=== PATIENT | female | born 1955 | race Caucasian/White ===

== ENCOUNTER 2023-10-25 08:56 | Emergency (ER) | payer MEDICARE, SELFPAY ==
[2023-10-25 09:03] VITALS: BP 121/65; PULSE 67; RESP 16; TEMP 36.1; O2SAT 98; BMI 33.3
--- NOTE | 2023-10-25 09:19 | ED_ITS ---
HPI - General Adult General Chief complaint: Skin/Abscess/Foreign Body Stated complaint: rash under armpits Time Seen by Provider: 10/25/23 09:14 History of Present Illness HPI narrative: Patient is a 68-year-old woman who has had a rash in her axilla bilaterally for last week. She was seen in clinic and was treated with oral prednisone. Symptoms seem to worsen. The lesions extend from the axilla down the anterior medial aspect of both arms. That they extremely itchy and slightly raised and forming small circles. No other symptoms such as fevers chills night sweats cough shortness of breath no stiff neck no involvement of mucous membranes. Other than the itching she feels fine. She is diabetic. No weeping or drainage noted. Related Data Home Medications Medication Instructions Recorded Confirmed atorvastatin 40 mg tablet 40 mg PO DAILY 10/25/23 10/25/23 glimepiride 4 mg tablet 4 mg PO DAILY 10/25/23 10/25/23 levothyroxine 100 mcg capsule 100 mcg PO DAILY 10/25/23 10/25/23 lisinopril 10 mg tablet 10 mg PO DAILY 10/25/23 10/25/23 metformin 500 mg tablet 500 mg PO DAILY 10/25/23 10/25/23 pioglitazone 45 mg tablet 45 mg PO DAILY 10/25/23 10/25/23 Previous Rx's Medication Instructions Recorded cephalexin 500 mg capsule 500 mg PO TID 7 days #21 caps 10/25/23 nystatin 100,000 unit/gram topical 1 applic topical TID #60 grams 10/25/23 powder Allergies Allergy/AdvReac Type Severity Reaction Status Date / Time No Known Drug Allergies Allergy Verified 10/25/23 09:08 Review of Systems Status of ROS: Reports: 10 or more systems reviewed and unremarkable except as noted in History and below [facility] Medical History (Updated 10/25/23 @ 09:25 by Chucky Espinal MD) Diabetes mellitus ?E11.9 - Type 2 diabetes mellitus without complications (ICD-10) Social History Smoking Status: Never smoker How often do you have a drink containing alcohol: monthly or less AUDIT-C Alcohol total score: 1 Non-prescribed substance use: denies use Exam Narrative: Exam Narrative: EXAM GENERAL: Patient appears comfortable and well. EYES: No scleral icterus. THYROID: no thyroid nodules or thyromegaly. LYMPH: No supraclavicular or cervical lymphadenopathy. SKIN: Intermittent slightly raised erythematous rash noted in the axilla bilaterally extension to the anterior medial aspects of the arms. There is peers to be surrounding erythema consistent with secondary infection. No drainage or discharge noted minimal lymphadenopathy. EXT: No dependent lower extremity pedal edema. HEART: Regular rate and rhythm with no murmurs, rubs, or gallops. LUNGS: Clear to auscultation bilaterally with no crackles or wheezes. ABD: Soft, non tender, non distended. PSYCH: Good eye contact, speech is not pressured. Const: Vital Signs, click to edit/add: Vital Signs - 24 hr 10/25/23 09:03 Temperature 96.9 F L Pulse Rate [Left P ulse Oximeter] 67 Respiratory Rate 16 Blood Pressure [Ri ght Upper Arm] 121/65 Pulse Oximetry 98 Oxygen Delivery Me thod Room Air Course Course ED Course: Patient seen and examined. Vital Signs Vital signs: Initial Vital Signs Temperature 96.9 F L 10/25/23 09:03 Temperature Source Temporal Artery Scan 10/25/23 09:03 Pulse Rate 67 10/25/23 09:03 Respiratory Rate 16 10/25/23 09:03 Blood Pressure 121/65 10/25/23 09:03 Blood Pressure Mean 83 10/25/23 09:03 Blood Pressure Position Sitting 10/25/23 09:03 Pulse Oximetry 98 10/25/23 09:03 Oxygen Delivery Method Room Air 10/25/23 09:03 Vital Signs Temperature 96.9 F L 10/25/23 09:03 Pulse Rate 67 10/25/23 09:03 Respiratory Rate 16 10/25/23 09:03 Blood Pressure 121/65 10/25/23 09:03 Pulse Oximetry 98 10/25/23 09:03 Oxygen Delivery Method Room Air 10/25/23 09:03 Temperature 96.9 F L 10/25/23 09:03 Pulse Rate 67 10/25/23 09:03 Respiratory Rate 16 10/25/23 09:03 Blood Pressure 121/65 10/25/23 09:03 Pulse Oximetry 98 10/25/23 09:03 Oxygen Delivery Method Room Air 10/25/23 09:03 Medical Decision Making MDM Narrative Medical decision making narrative: Patient is a 68-year-old woman with diabetes who has failed prednisone for a rash in her axilla. On my inspection this appears to be Tinea Interigio with secondary cellulitis. I will have her continue her current medications stopping her prednisone which he actually finished earlier today. In addition I did treated with topical nystatin as well as oral antibiotics in the form of Keflex. She is going to see her primary doctor back this week and if symptoms improve I would recommend Derm referral. Differential Diagnosis Differential Diagnosis: Desirae cellulitis foreign body burn drug reaction Discharge Plan Discharge Clinical Impression: Tinea corporis, Cellulitis Patient Disposition: Home, Self-Care Condition: Stable Instructions: Cellulitis (ED), Skin Yeast Infection (ED) Additional Instructions: Powder as directed Oral antibiotics as directed Keep area dry Follow up with your doctor this week. Activity Level: Activity as Tolerated Discharge Diet: Regular Prescriptions: New cephalexin 500 mg capsule 500 mg PO TID 7 Days Qty: 21 0RF nystatin 100,000 unit/gram powder 1 applic topical TID Qty: 60 0RF No Action levothyroxine 100 mcg capsule 100 mcg PO DAILY glimepiride 4 mg tablet 4 mg PO DAILY metformin 500 mg tablet 500 mg PO DAILY atorvastatin 40 mg tablet 40 mg PO DAILY pioglitazone 45 mg tablet 45 mg PO DAILY lisinopril 10 mg tablet 10 mg PO DAILY Stand Alone Forms: [employer] Info Instructions
== END 2023-10-25 09:40 | disposition home or self-care (01) ==
LOC: ED 09:39
PROVIDERS: Emergency Provider Internal Medicine; PCP Family Medicine
DX: L03.111 Cellulitis of right axilla (principal); L03.112 Cellulitis of left axilla; B35.4 Tinea corporis
CPT/HCPCS: 99283; 99284